=== PATIENT | female | born 1960 | race Caucasian/White ===

== ENCOUNTER 2016-10-07 10:04 | Outpatient (CLI) | payer OTHER ==
[2013-03-14 09:53] VITALS: BMI 25.6
[~2016-10-07 10:04] MED LIST: DYAZIDE 37.5/251 CAP; PERCOCET 10/3251 TA1 PO; PROZAC10 MG; TIROSINT13 MCG; ZANTAC150 MG PO
== END 2016-10-07 11:41 ==
LOC: D.MAMMO 10:04
DX: N64.4 Mastodynia (principal); R23.4 Changes in skin texture; N60.11 Diffuse cystic mastopathy of right breast

== ENCOUNTER 2017-12-21 21:00 | Outpatient (CLI) | payer OTHER ==
[2013-03-14 09:53] VITALS: BMI 25.6
== END 2017-12-21 23:59 | disposition home or self-care (01) ==
LOC: D.MAMMO 21:00
DX: Z12.31 Encounter for screening mammogram for malignant neoplasm of breast (principal)